=== PATIENT | female | born 1995 | race Caucasian/White ===

== ENCOUNTER 2017-10-31 08:25 | Outpatient (CLI) | payer OTHER | END 2017-10-31 08:26 | disposition home or self-care (01) | LOC: BICULT 08:25 | PROVIDERS: ATTEND Internal Medicine Gastroenterology | DX: R10.12 Left upper quadrant pain (principal); R11.2 Nausea with vomiting, unspecified; R16.1 Splenomegaly, not elsewhere classified | CPT/HCPCS: 76700 ==